=== PATIENT | female | born 1995 | race American Indian/Alaskan Native ===

== ENCOUNTER 2020-04-12 15:38 | Emergency (ER) | payer MEDICAID ==
[2020-04-12 16:08] VITALS: BP 146/88
--- NOTE | 2020-04-12 16:32 | XRay Report ---
RIGHT TOE(S) 3 VIEW(S) INDICATION / CLINICAL INFORMATION: PAIN AFTER FALLING COMPARISON: None available. FINDINGS: BONES / JOINT(S): Nondisplaced fracture of the lateral aspect of the base of the distal phalanx of th e right great toe. No other fracture. No significant arthritis. SOFT TISSUES: Mild soft tissue swelling of the great toe. ADDITIONAL FINDINGS: None. Signer Name: Fallon Bloom MD Signed: 04/12/2020 4:27 PM Workstation Name: [id number]
--- NOTE | 2020-04-12 17:55 | Emergency Department Report ---
ED Lower Extremity HPI - General Chief Complaint: Extremity Injury, Lower Stated Complaint: BROKE,TOE Source: patient Mode of arrival: Ambulatory Limitations: No Limitations - History of Present Illness Injury: Toes: Right (hallux) Severity: mild, moderate Improves With: nothing Worsens With: nothing Context: fall, direct blow, other (Walking down slick steps lost footing causing pain to the toe and striking the toe) Associated Symptoms: swelling, able to partially bear weight - Related Data Allergies Allergy/AdvReac Type Severity Reaction Status Date / Time No Known Allergies Allergy Unverified 04/12/20 16:06 ED Review of Systems ROS: Stated complaint: BROKE,TOE Other details as noted in HPI Comment: All other systems reviewed and negative ED Past Medical Hx - Past Medical History Previous Medical History?: No - Surgical History Past Surgical History?: No ED Physical Exam - General Limitations: No Limitations General appearance: alert, in no apparent distress - Head Head exam: Present: atraumatic, normocephalic - Eye Eye exam: Present: normal appearance, PERRL, EOMI, scleral icterus - ENT ENT exam: Present: normal exam, mucous membranes moist - Neck Neck exam: Present: normal inspection - Respiratory Respiratory exam: Present: normal lung sounds bilaterally. Absent: respiratory distress - Cardiovascular Cardiovascular Exam: Present: regular rate, normal rhythm. Absent: systolic murmur, diastolic murmur, rubs, gallop - GI/Abdominal GI/Abdominal exam: Present: soft, normal bowel sounds - Extremities Exam Extremities exam: Present: normal inspection, full ROM, tenderness, normal capillary refill - Expanded Lower Extremity Exam Right Upper Leg exam: Present: normal inspection Knee exam: Present: normal inspection Lower Leg exam: Present: normal inspection, full ROM Ankle exam: Present: normal inspection Foot/Toe exam: Present: tenderness, swelling (To the right hallux near the base pain with palpation. Pulses 2+ cap refill brisk). Absent: abrasion, deformity, foreign body, calcaneal tenderness - Back Exam Back exam: Present: normal inspection - Neurological Exam Neurological exam: Present: alert, oriented X3, CN II-XII intact - Psychiatric Psychiatric exam: Present: normal affect, normal mood - Skin Skin exam: Present: warm, dry, intact, normal color. Absent: rash ED Course Vital Signs 04/12/20 16:06 Temperature 99.3 F Pulse Rate 86 Respiratory 18 Rate Blood Pressure 146/88 O2 Sat by Pulse 99 Oximetry Critical care attestation.: If time is entered above; I have spent that time in minutes in the direct care of this critically ill patient, excluding procedure time. ED Disposition Clinical Impression: Toe fracture, right Disposition: [id number]-01 TO HOME OR SELFCARE Is pt being admited?: No Does the pt Need Aspirin: No Condition: Stable Instructions: Toe Fracture Rehab-SportsMed, Cast or Splint Care, Adult, [id number], How to Use Cold Therapy Additional Instructions: Please utilize ice Tylenol Motrin as needed for pain Referrals: DEONDRE JOHNSON MD [Staff Physician] - 3-5 Days [facility] [Provider Group] - 3-5 Days
== END 2020-04-12 20:55 | disposition home or self-care (01) ==
LOC: ED 15:38
DX: S92.424A Nondisplaced fracture of distal phalanx of right great toe, initial encounter for closed fracture (principal); W10.9XXA Fall (on) (from) unspecified stairs and steps, initial encounter; Y93.89 Activity, other specified; Y92.89 Other specified places as the place of occurrence of the external cause; Y99.8 Other external cause status
CPT/HCPCS: 99283